=== PATIENT | male | born 1975 | race African-American/Black ===

== ENCOUNTER 2019-02-13 12:05 | Emergency (ER) | payer MEDICAID ==
[~2019-02-13] VITALS: Ht 170.2 cm; Wt 67.0 kg
[2019-02-13] MEDS ORDERED: KETOROLAC 30MG/ML VIAL IM ONE (13:30)
[2019-02-13] MEDS ORDERED: HYDROCODONE/ACETAMINOPHEN 5/325MG TABLET PO ONE (15:15)
[2019-02-13 16:15] VITALS: BP 146/90
== END 2019-02-13 16:16 | disposition home or self-care (01) ==
LOC: ER 12:15
DX: S82.61XA Displaced fracture of lateral malleolus of right fibula, initial encounter for closed fracture (principal); W01.0XXA Fall on same level from slipping, tripping and stumbling without subsequent striking against object, initial encounter; Y93.89 Activity, other specified; Y92.89 Other specified places as the place of occurrence of the external cause
CPT/HCPCS: 29515; 73610; 96372; 99283; J1885; Z7610

== ENCOUNTER 2021-06-28 18:19 | Emergency (ER) | payer MEDICAID ==
[~2021-06-28] VITALS: Ht 170.2 cm; Wt 72.0 kg
[2021-06-28] MEDS ORDERED: DOXYCYCLINE HYCLATE 100MG CAPSULE PO ONE (21:00)
[2021-06-28] MEDS ORDERED: CEFTRIAXONE SODIUM 500 MG/VIAL IM ONE (21:00)
[2021-06-28] MEDS ORDERED: LIDOCAINE HCL 1% 20ML VIAL (Pyxis) INJ INFIL ONE (21:00)
[2021-06-28 21:05] LABS: CLARITY URINE CLEAR (CLEAR); COLOR URINE DARK YELLOW (YELLOW); KETONES URINE TRACE (NEGATIVE); LEUKOCYTE ESTERASE URINE 2+ (NEGATIVE); NITRITE URINE POSITIVE (NEGATIVE); OCCULT BLOOD URINE NEGATIVE (NEGATIVE); PROTEIN URINE TRACE (NEGATIVE); SPECIFIC GRAVITY URINE 1.033 (1.005-1.030)
[2021-06-28] MEDS ORDERED: DOXY100C5 MT (21:09)
[2021-06-28 21:39] VITALS: BP 135/86
[2021-07-01 04:07] LABS: NEISSERIA GONORRHOEAE NAA Positive (Negative)
== END 2021-06-28 21:40 | disposition home or self-care (01) ==
LOC: ER 18:19
DX: N34.2 Other urethritis (principal); Z20.2 Contact with and (suspected) exposure to infections with a predominantly sexual mode of transmission
CPT/HCPCS: 81003; 87086; 87491; 87591; 96372; 99283; J0696